=== PATIENT | female | born 2000 | race Caucasian/White ===

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

== ENCOUNTER 2021-05-21 02:32 | Emergency (ER) | payer OTHER, MEDICAID ==
[~2021-05-21] VITALS: Ht 154.9 cm; Wt 69.4 kg
--- NOTE | 2021-05-21 03:18 | NUR ---
BIBSELF C/O SYNCOPAL EPISODE AT NOON WHILE AT WORK. STATES SHE HAS BEEN HAVING PERSISTENT DIZZINESS. DENIES ANY [place] VOMITTING OR CHANGES IN VISION.PT ALERT AND ORIENTED X4 BREATHING EVEN AND UNLABORED. PLACED ON MONITOR AND ALL V/S STABLE.
[2021-05-21 03:21] VITALS: BP 111/78
--- NOTE | 2021-05-21 03:26 | NUR ---
PT SEEN BY ERLIN PÉREZ
--- NOTE | 2021-05-21 04:01 | NUR ---
PT TAKEN TO CT VIA RADIOLOGY
--- NOTE | 2021-05-21 04:06 | NUR ---
PT RETURNED TO ER BED 16 VIA SHERRIE
== END 2021-05-21 05:31 | disposition home or self-care (01) ==
LOC: ER 02:40
DX: S09.8XXA Other specified injuries of head, initial encounter (principal); F07.81 Postconcussional syndrome; W18.39XA Other fall on same level, initial encounter; Y93.89 Activity, other specified; Y92.89 Other specified places as the place of occurrence of the external cause; Y99.8 Other external cause status
CPT/HCPCS: 70450-TC